=== PATIENT | male | born 1960 | race Caucasian/White ===

== ENCOUNTER 2021-04-16 15:10 | Emergency (ER) | payer BC, SELFPAY ==
--- NOTE | ~2021-04-16 | XR_ITS ---
EXAMINATION: XR heel RT min 2V INDICATION: Right heel pain TECHNIQUE: Two views of the right calcaneus are obtained. COMPARISON: None available FINDINGS: Bone alignment is normal. There is no fracture. 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 Posterior and plantar calcaneal enthesophytes are noted. There is mild plantar soft tissue swelling o f the calcaneus. IMPRESSION: 1. Soft tissue swelling without acute osseous abnormality. Reviewed, dictated and finalized at location A.
[2021-04-16 15:17] VITALS: BP 146/76; PULSE 103; RESP 16; TEMP 36.7; O2SAT 98
--- NOTE | 2021-04-16 15:51 | ED.LOWEXIN ---
HPI - Extremity Injury (Lower) General Chief Complaint: Extremity Injury, Lower Stated Complaint: rt heel pain History of Present Illness HPI Narrative: This is a 60-year-old male that presents to urgent care complaining of right heel pain patient states that he walks approximately 4 to 5 miles a day and said that his heel has been hurting him and does not quite understand why. 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 and he has seen had Ortho splint placed in his shoes and repaired but does not quite understand why his foot is hurting Related Data Home Medications Medication Instructions Recorded Confirmed atorvastatin 40 mg PO DAILY 04/16/21 04/16/21 dapagliflozin [Farxiga] 5 mg PO DAILY 04/16/21 04/16/21 felodipine 5 mg PO DAILY 04/16/21 04/16/21 ibuprofen 800 mg PO Q8H PRN 04/16/21 04/16/21 lisinopril 20 mg PO DAILY 04/16/21 04/16/21 metformin 850 mg PO BID 04/16/21 04/16/21 Allergies Allergy/AdvReac Type Severity Reaction Status Date / Time ciprofloxacin Allergy Mild Rash Verified 04/16/21 16:14 Cephalosporins Allergy Unknown Rash Verified 04/16/21 16:15 codeine Allergy Unknown Rash Verified 04/16/21 16:15 Penicillins Allergy Unknown Rash Verified 04/16/21 16:15 Review of Systems Review of Systems: CONSTITUTIONAL: Denies fever, chills, or sweats. EYES: Denies visual changes, redness, or discharge. ENT: Denies rhinorrhea, congestion, sore throat, or otalgia. CARDIOVASCULAR:Denies chest pain, palpitations, or edema. RESPIRATORY: Denies cough or dyspnea. GASTROINTESTINAL: Denies abdominal pain, nausea, vomiting, or diarrhea. GENITOURINARY: Denies dysuria or hematuria. SKIN:[Denies rash or itching. MUSCULOSKELETAL:Denies back pain, right heel pain with no swelling or discoloration joint pain, or myalgia. NEUROLOGIC: Denies headache, numbness, or weakness. PSYCHIATRIC:Denies anxiety or depression PMFSH Comments At time as signature, I have reviewed and agree with nursing past medical, social, surgical and family history. Please see nursing chart for further information. There is no relevant family history pertinent to the presenting complaint. Exam Narrative: GENERAL:Well-appearing, well-nourished, and in no acute distress. HEAD:Normocephalic, atraumatic. EYES: PERRLA and EOMI. ENT: Nares clear, no rhinorrhea or epistaxis. Mucous membranes moist. NECK: Supple. CHEST: Clear to auscultation. No respiratory distress. HEART: Regular rate and rhythm. No murmur heard. Normal peripheral pulses. ABDOMEN: Soft, nontender, nondistended, normal active bowel sounds. EXTREMITIES: Normal range of motion. No edema.decreased range of motion due to pain SKIN: Warm, dry, no rash. NEURO: No focal deficits. Alert and oriented x3. 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 There is no fracture. 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 Posterior and plantar calcaneal enthesophytes are noted. There is mild plantar soft tissue swelling of the calcaneus. IMPRESSION: 1. Soft tissue swelling without acute osseous abnormality. Vital Signs Vital signs: Vital Signs Temperature 98.1 F 04/16/21 15:17 Pulse Rate 103 H 04/16/21 15:17 Respiratory Rate 16 04/16/21 15:17 Blood Pressure 146/76 H 04/16/21 15:17 Pulse Oximetry 98 04/16/21 15:17 Temperature 98.1 F 04/16/21 15:17 Pulse Rate 103 H 04/16/21 15:17 Respiratory Rate 16 04/16/21 15:17 Blood Pressure 146/76 H 04/16/21 15:17 Pulse Oximetry 98 04/16/21 15:17 MDM - Extremity Injury (Lower) Differential Diagnosis Differential diagnosis: Likely ankle sprain and strain and ankle fracture Discharge Plan Discharge Clinical Impression: Heel spur Patient Disposition: Home, Self-Care Condition: Stable Instructions: Antibiotic Form, Heel Spur (ED) Additional Instructions: NSAIDs , such as ibuprofen, help decrease swelling, pain, and fever. This medicine is available with or without a doctor's order. NSAIDs
[2021-04-16] MEDS: KETOROLAC (*BKC) 60 MG/2 ML VIAL IM (16:12)
== END 2021-04-16 16:38 | disposition home or self-care (01) ==
PROVIDERS: Emergency Provider Nurse Practitioner Family; PCP Internal Medicine
DX: M77.31 Calcaneal spur, right foot (principal); E78.00 Pure hypercholesterolemia, unspecified; I10 Essential (primary) hypertension; E03.9 Hypothyroidism, unspecified
CPT/HCPCS: 73650; 96372; 99213; G0463; J1885

== ENCOUNTER 2021-09-08 17:29 | Emergency (ER) | payer BC, SELFPAY ==
[2021-09-08 17:35] VITALS: BP 139/69; PULSE 83; RESP 16; TEMP 36.4; O2SAT 98
--- NOTE | 2021-09-08 18:31 | ED.SKABFB ---
HPI - Skin/Abscess/Foreign Bdy General Chief complaint: Skin/Abscess/Foreign Body Stated complaint: Skin Sore Time Seen by Provider: 09/08/21 18:31 Source: patient Mode of arrival: ambulatory Limitations: no limitations History of Present Illness HPI narrative: 61-year-old male presented for complaint of right great toe redness, pain, swelling for 5 days. State he had a professional pedicure the day prior to sx onset. Has been applying mupirocin and washing with soap and water but sx have persisted, denies drainage streaking or fever. MD complaint: rash Related Data Home Medications Medication Instructions Recorded Confirmed atorvastatin 40 mg PO DAILY 04/16/21 09/08/21 dapagliflozin [Farxiga] 5 mg PO DAILY 04/16/21 09/08/21 felodipine 5 mg PO DAILY 04/16/21 09/08/21 ibuprofen 800 mg PO Q8H PRN 04/16/21 09/08/21 lisinopril 20 mg PO DAILY 04/16/21 09/08/21 metformin 850 mg PO BID 04/16/21 09/08/21 Allergies Allergy/AdvReac Type Severity Reaction Status Date / Time ciprofloxacin Allergy Mild Rash Verified 09/08/21 17:52 Cephalosporins Allergy Unknown Rash Verified 09/08/21 17:52 codeine Allergy Unknown Rash Verified 09/08/21 17:52 Penicillins Allergy Unknown Rash Verified 09/08/21 17:52 Review of Systems Review of Systems: CONSTITUTIONAL: Denies body aches, fever, chills, or sweats. EYES: Denies visual changes, redness, or discharge. ENT: Denies rhinorrhea, congestion, sore throat, or otalgia. CARDIOVASCULAR: Denies chest pain, palpitations, or edema. RESPIRATORY: Denies cough or dyspnea. GASTROINTESTINAL: Denies abdominal pain, nausea, vomiting, or diarrhea. GENITOURINARY: Denies dysuria or hematuria. SKIN: redness and swelling to right toe MUSCULOSKELETAL: Denies back pain, joint pain, or myalgia. NEUROLOGIC: Denies headache, numbness, tingling, or weakness. PSYCH: Denies depression or anxiety. PMFSH Comments At time of signature, I have reviewed and agree with nursing past medical, surgical, social and family history unless otherwise noted. Please see nursing chart for further information. There is no relevant family history pertinent to the presenting complaint Exam Narrative: GENERAL: Well-appearing, well-nourished, and in no acute distress. HEAD: Normocephalic, atraumatic. EYES: PERRLA, conjunctivae clear, and EOMI. ENT: Mucous membranes moist. Oropharynx without edema, erythema or lesions. NECK: Supple. No lymphadenopathy CHEST: Clear to auscultation. No respiratory distress. HEART: Regular rate and rhythm. SKIN: Warm, dry. right great toe mild redness and swelling to lateral aspect of cuticle/nail, no paronychia or active drainage/fluctuance NEURO: Alert and oriented x3. PSYCH: Normal mood and affect Course Course Emergency Course: Patient is aware of diagnosis, understands and agrees to treatment plan. Anticipatory guidance given. Patient agrees to follow-up as directed and is aware of reasons to seek care at the emergency department. Portions of this record may have been created with voice recognition software Level of Care: Express Care Visit Vital Signs Vital signs: Vital Signs Temperature 97.5 F L 09/08/21 17:35 Pulse Rate 83 09/08/21 17:35 Respiratory Rate 16 09/08/21 17:35 Blood Pressure 139/69 09/08/21 17:35 Pulse Oximetry 98 09/08/21 17:35 Temperature 97.5 F L 09/08/21 17:35 Pulse Rate 83 09/08/21 17:35 Respiratory Rate 16 09/08/21 17:35 Blood Pressure 139/69 09/08/21 17:35 Pulse Oximetry 98 09/08/21 17:35 Reviewed MDM - Skin/Abscess/Foreign Bdy MDM Narrative Medical decision making narrative: Ddx viral exanthema, contact dermatitis, allergic dermatitis, eczema, urticaria, zoster, paronychia. Instructed patient to go to nearest ER immediately for any worsening symptoms including but not limited to: fever, spreading redness, pain, sore throat, headache, dizziness, chest pain, trouble breathing, or any symptoms concerning to the patient. Marlene
== END 2021-09-08 19:00 | disposition home or self-care (01) ==
PROVIDERS: Emergency Provider Nurse Practitioner Family
DX: L02.611 Cutaneous abscess of right foot (principal); E78.00 Pure hypercholesterolemia, unspecified; I10 Essential (primary) hypertension; E03.9 Hypothyroidism, unspecified
CPT/HCPCS: 99213; G0463

== ENCOUNTER 2024-01-25 20:43 | Emergency (ER) | payer OTHER, SELFPAY ==
[2024-01-25 20:46] VITALS: BP 156/79; PULSE 78; RESP 18; TEMP 36.6; O2SAT 98
--- NOTE | 2024-01-25 21:16 | PC.NURSE ---
patient to the ER to be seen for left sided cheek pain. current pain on palpation is 3/10, however last night they had an episode of 12/10 pain. patient states they have gone to the dentist where he was told everything was intact, as well as an ENT and was told no presence of infection. patient has chronic sinus issues and recent x-rays have not shown any abnormality.
[2024-01-25] MEDS: CLINDAMYCIN HCL 150 MG CAP 300 MG PO (22:34)
--- NOTE | 2024-01-25 22:34 | ED.GENADULT ---
HPI - General Adult General Chief complaint: Unspecified Stated complaint: facial pain Time Seen by Provider: 01/25/24 21:34 History of Present Illness HPI narrative: 63 old male present to the emergency department for evaluation for facial pain that has been chronic and intermittent. Patient states he develops left-sided facial pain that lasts for 30 minutes to an hour. Patient has had follow-up with ENT and with his dentist. Patient states the symptoms have been occurring with more frequency. Patient had episode last night episode today so patient presented emergency department for evaluation. Related Data Home Medications Medication Instructions Recorded Confirmed atorvastatin 40 mg tablet 40 mg PO DAILY 04/16/21 09/08/21 dapagliflozin propanediol 5 mg 5 mg PO DAILY 04/16/21 09/08/21 tablet (Farxiga) felodipine 5 mg tablet,extended 5 mg PO DAILY 04/16/21 09/08/21 release 24 hr ibuprofen 800 mg tablet 800 mg PO Q8H PRN Pain 04/16/21 09/08/21 lisinopril 20 mg tablet 20 mg PO DAILY 04/16/21 09/08/21 metformin 850 mg tablet 850 mg PO BID 04/16/21 09/08/21 Allergies Allergy/AdvReac Type Severity Reaction Status Date / Time ciprofloxacin Allergy Mild Rash Verified 01/25/24 20:49 Cephalosporins Allergy Unknown Rash Verified 01/25/24 20:49 codeine Allergy Unknown Rash Verified 01/25/24 20:49 Penicillins Allergy Unknown Rash Verified 01/25/24 20:49 amoxicillin Allergy Ulcers Verified 01/25/24 20:49 doxycycline Allergy Ulcers Verified 01/25/24 20:49 Sulfa (Sulfonamide Allergy Ulcers Verified 01/25/24 20:49 Antibiotics) Review of Systems Review of Systems: All systems reviewed & are unremarkable except as noted in HPI and below Exam Narrative: APPEARANCE: Well appearing, no pain, no distress, well-nourished. HEAD: left-sided bag arch and facial tenderness to palpation with no edema erythema or fluctuance EYES: PERRLA/EOMI, conjunctivae clear. NOSE: Normal no drainage EARS:TMS clear with good light reflex. THROAT: Pharynx clear, no exudate. NECK: Supple. No adenopathy, no masses. RESPIRATORY: Airway patent, respirations nonlabored. Clear to auscultation bilaterally, no rales, rhonchi, wheezing. CARDIOVASCULAR: Regular rate and rhythm without murmurs rubs or gallops. ABDOMINAL: Soft, nontender, nondistended, normal bowel sounds MUSCULOSKELETAL: Moves all extremities. Strength/ROM intact, No edema, No calf tenderness. NEURO: Alert. Cranial nerves II through XII intact. grossly intact SKIN: Warm, dry. Normal Color Course Vital Signs Vital signs: Vital Signs Temperature 97.8 F 01/25/24 20:46 Pulse Rate 78 01/25/24 20:46 Respiratory Rate 18 01/25/24 20:46 Blood Pressure 156/79 H 01/25/24 20:46 Pulse Oximetry 98 01/25/24 20:46 Oxygen Delivery Room Air 01/25/24 20:46 Temperature 97.8 F 01/25/24 20:46 Pulse Rate 78 01/25/24 20:46 Respiratory Rate 18 01/25/24 20:46 Blood Pressure 156/79 H 01/25/24 20:46 Pulse Oximetry 98 01/25/24 20:46 Oxygen Delivery Room Air 01/25/24 20:46 Medical Decision Making MDM Narrative Medical decision making narrative: Patient does have some left-sided facial tenderness to palpation located just inferior to the zygomatic arch. Possible sinusitis versus dental infection. Patient was provided medication for pain control at home but patient was also started on clindamycin in the emergency department. Patient was advised to have close follow-up with his ENT. All questions concerns were addressed. Differential Diagnosis Differential Diagnosis: dental infection, sinus infection, neuropathy Vital Signs Vital Signs: Vital Signs Temperature 97.8 F 01/25/24 20:46 Pulse Rate 78 01/25/24 20:46 Respiratory Rate 18 01/25/24 20:46 Blood Pressure 156/79 H 01/25/24 20:46 Pulse Oximetry 98 01/25/24 20:46 Oxygen Delivery Room Air 01/25/24 20:46 Temperature 97.8 F 01/25/24 20:46 Pulse Rate 78 01/25/24 20:
== END 2024-01-25 22:37 | disposition home or self-care (01) ==
PROVIDERS: Emergency Provider Emergency Medicine
DX: R51.9 Headache, unspecified (principal); Z79.899 Other long term (current) drug therapy; Z79.84 Long term (current) use of oral hypoglycemic drugs
CPT/HCPCS: 99283; A9270